=== PATIENT | male | born 1960 | race African-American/Black ===

== ENCOUNTER 2022-11-10 20:49 | Inpatient (IN) | payer OTHER ==
[2022-11-10 22:48] VITALS: BMI 21.4
[2022-11-11] MEDS ORDERED: NALOXONE HCL 0.4 MG/ML VIAL IM PRN (01:58)
[2022-11-11] MEDS ORDERED: ACETAMINOPHEN 325 MG TABLET (FP) PO PRN (01:58)
[2022-11-11] MEDS ORDERED: IBUPROFEN 600 MG TABLET (FP) PO PRN (01:58)
[2022-11-11] MEDS ORDERED: NALOXONE HCL (KLOXXADO) 8 MG SPRAY NS PRN (01:58)
[2022-11-11] MEDS ORDERED: MAG HYDROX/AL HYDROX/SIMETH 30 ML UNIT-DOSE CUP PO PRN (01:58)
[2022-11-11] MEDS ORDERED: MAGNESIUM HYDROX 2400MG/30ML ORAL SUSPENSION 30 ML CUP PO PRN (01:58)
[2022-11-11] MEDS ORDERED: BENZOCAINE/MENTHOL (CHLORASEPTIC ) LOZENGE MM PRN (01:58)
[2022-11-11] MEDS ORDERED: BISMUTH SUBSALICYLATE 524 MG/30 ML PO PRN (01:58)
[2022-11-11] MEDS ORDERED: POLYETHYLENE GLYCOL (HEALTHYLAX) 3350 17 GM PACKET PO PRN (01:58)
[2022-11-11] MEDS ORDERED: DICYCLOMINE HCL 10 MG CAPSULE PO PRN (01:58)
[2022-11-11] MEDS ORDERED: guaiFENesin 600 MG TABLET.ER (FP) PO PRN (01:58)
[2022-11-11] MEDS ORDERED: ONDANSETRON *ODT* 4 MG TABLET SL PRN (01:58)
[2022-11-11] MEDS ORDERED: BENZONATATE 200 MG CAPSULE PO PRN (01:58)
[2022-11-11] MEDS ORDERED: IBUPROFEN 400 MG TABLET (FP) PO PRN (01:58)
[2022-11-11] MEDS ORDERED: LOPERAMIDE HCL 2 MG CAPSULE PO PRN (01:58)
[2022-11-11] MEDS: METHOCARBAMOL 500 MG TABLET PO PRN ×2 (02:59→22:19)
[2022-11-11] MEDS ORDERED: methaDONE HCL 10 MG TABLET (FOR DETOX USE ONLY) PO ONE (03:00)
[2022-11-11] MEDS: PRENATAL VITAMINS W/ FOLIC ACID TABLET (FP) PO SCH (10:13)
[2022-11-11] MEDS: cloNIDine HCL 0.1 MG TABLET PO PRN (10:13)
[2022-11-11 11:15] LABS: HEMATOCRIT 38.5 % (35.4-49); HEMOGLOBIN 12.3 GM/dL (11.7-16.9); MCH 26.9 pg (25.7-33.7); MCHC 31.9 g/dl (32.0-35.9); MEAN CELL VOLUME 84.2 fl (80-96); MEAN PLT VOLUME 8.1 fl (7.5-11.1); PLATELET COUNT 273 10^3/uL (134-434); RBC 4.57 M/mm3 (4.00-5.60); RDW 15.4 % (11.9-15.9); WHITE BLOOD COUNT 6.3 K/mm3 (4.0-10.0)
[2022-11-11 11:45] LABS: POTASSIUM 3.8 mmol/L (3.5-5.1)
[2022-11-11] MEDS ORDERED: amLODIPine BESYLATE 10 MG TABLET (FP) PO SCH (12:15)
[2022-11-11 12:16] LABS: BLOOD UREA NITROGEN 12.7 mg/dL (7-18)
[2022-11-11 12:19] LABS: CREATININE 0.9 mg/dL (0.55-1.3)
[2022-11-11 12:20] LABS: TOT PROT 7.8 g/dl (6.4-8.2)
[2022-11-11] MEDS: ASPIRIN 81 MG CHEWABLE TABLETS PO SCH (12:22)
[2022-11-11] MEDS ORDERED: NIFEdipine E.R 60 MG TABLET PO SCH (22:00)
[2022-11-11] MEDS: THIAMINE HCL 100 MG TABLET (FP) PO SCH (22:19)
[2022-11-11] MEDS: ATORVASTATIN CA 20 MG TABLET (FP) PO SCH (22:19)
[2022-11-11] MEDS: MELATONIN 5 MG TABLETS PO SCH (22:19)
[2022-11-12] MEDS: cloNIDine HCL 0.1 MG TABLET PO PRN (07:37)
[2022-11-12] MEDS: METHOCARBAMOL 500 MG TABLET PO PRN ×2 (07:37→22:04)
[2022-11-12] MEDS: PRENATAL VITAMINS W/ FOLIC ACID TABLET (FP) PO SCH (10:02)
[2022-11-12] MEDS: ASPIRIN 81 MG CHEWABLE TABLETS PO SCH (10:03)
[2022-11-12] MEDS: NIFEdipine E.R 60 MG TABLET PO SCH (22:04)
[2022-11-12] MEDS: MELATONIN 5 MG TABLETS PO SCH (22:04)
[2022-11-12] MEDS: ATORVASTATIN CA 20 MG TABLET (FP) PO SCH (22:04)
[2022-11-12] MEDS: THIAMINE HCL 100 MG TABLET (FP) PO SCH (22:04)
[2022-11-13] MEDS ORDERED: methaDONE HCL 10 MG TABLET (FOR DETOX USE ONLY) PO ONE (10:00)
[2022-11-13] MEDS: PRENATAL VITAMINS W/ FOLIC ACID TABLET (FP) PO SCH (10:23)
[2022-11-13] MEDS: ASPIRIN 81 MG CHEWABLE TABLETS PO SCH (10:23)
[2022-11-13 21:21] VITALS: RESP 18
[2022-11-13] MEDS: NIFEdipine E.R 60 MG TABLET PO SCH (21:58)
[2022-11-13] MEDS: ATORVASTATIN CA 20 MG TABLET (FP) PO SCH (21:58)
[2022-11-13] MEDS: THIAMINE HCL 100 MG TABLET (FP) PO SCH (21:58)
[2022-11-13] MEDS: MELATONIN 5 MG TABLETS PO SCH (21:58)
[2022-11-13] MEDS: METHOCARBAMOL 500 MG TABLET PO PRN (21:58)
[2022-11-14 09:17] VITALS: BP 151/88; PULSE 94; TEMP 98
[2022-11-14] MEDS: ASPIRIN 81 MG CHEWABLE TABLETS PO SCH (09:21)
[2022-11-14] MEDS: PRENATAL VITAMINS W/ FOLIC ACID TABLET (FP) PO SCH (09:23)
[2022-11-15] MEDS ORDERED: methaDONE HCL 10 MG TABLET (FOR DETOX USE ONLY) PO ONE (10:00)
== END 2022-11-14 09:19 | disposition left against medical advice (07) | DRG 770 ==
LOC: YASAS 20:49 → Y3N 11-11 02:24
PROVIDERS: ADMIT Allergy & Immunology; ATTEND Surgery
PROC: HZ2ZZZZ Detoxification Services for Substance Abuse Treatment (ICD-10-PCS; principal; 2022-11-11)
DX: F11.23 Opioid dependence with withdrawal (principal); F17.210 Nicotine dependence, cigarettes, uncomplicated; F19.24 Other psychoactive substance dependence with psychoactive substance-induced mood disorder; F31.9 Bipolar disorder, unspecified; E78.00 Pure hypercholesterolemia, unspecified; E78.5 Hyperlipidemia, unspecified; I10 Essential (primary) hypertension; K21.9 Gastro-esophageal reflux disease without esophagitis; Z87.891 Personal history of nicotine dependence; Z87.11 Personal history of peptic ulcer disease
CPT/HCPCS: 36415; 80053; 85027; 86780; 87635; 93005; 93010